=== PATIENT | female | born 1935 | race Caucasian/White ===

== ENCOUNTER 2022-12-22 09:53 | Day surgery (SDC) | payer MEDICARE ==
[2022-12-22] VITALS (13 sets, daily range): BP systolic 128–176; BP diastolic 56–96
[~2022-12-22] VITALS: Ht 175.3 cm; Wt 75.3 kg
[2022-12-22] MEDS ORDERED: normal saline 1,000 ML IV SCH (10:35)
[2022-12-22] MEDS ORDERED: LORazepam 0.5 MG tablet PO PRN (10:35)
[2022-12-22] MEDS ORDERED: diphenhydrAMINE 25mg capsule PO PRN (10:35)
[2022-12-22] MEDS ORDERED: ZOLP5TAB2 (10:36)
[2022-12-22] MEDS ORDERED: PANT40TA54 PO (10:36)
[2022-12-22] MEDS ORDERED: ATOR40TA72 PO (10:36)
[2022-12-22] MEDS ORDERED: DUPI300S (10:37)
[2022-12-22] MEDS ORDERED: HYDR-3972 PO (10:37)
[2022-12-22] MEDS ORDERED: BISO1TAB99 PO (10:37)
[2022-12-22] MEDS ORDERED: PREG100C55 PO (10:37)
[2022-12-22] MEDS ORDERED: ASCO250T22 PO (10:41)
[2022-12-22] MEDS ORDERED: fentaNYL/PF 50MCG/1 ML 2ML syringe ONE ×2 (10:47→12:05)
[2022-12-22] MEDS ORDERED: verapamil 2.5 mg/ml inj IV ONE (10:47)
[2022-12-22] MEDS ORDERED: LIDOcaine 1% (10mg/ml) 2ml vial ONE (10:47)
[2022-12-22] MEDS ORDERED: midazolam 1 mg/ML 2ml injection ONE (10:47)
[2022-12-22] MEDS ORDERED: heparin 1,000unit/ml 10ml vial 10 ML ONE (10:47)
[2022-12-22] MEDS ORDERED: iohexol 350MG/ML 100ml bottle IV ONE (10:48)
[2022-12-22] MEDS ORDERED: iohexol 350 MG/ML 50ML vial IV ONE ×2 (10:48→12:00)
[2022-12-22] MEDS ORDERED: nitroGLYCERIN-Tridil 50MG/D5W 250 ML IV ONE (10:48)
[2022-12-22 11:01] LABS: EOSINOPHILS # (AUTO) 0.1 X10'3 (0-0.9); MEAN CORPUSCULAR VOLUME 100.5 FL (78-98); MONOCYTES # (AUTO) 0.4 X10'3 (0-0.9); WHITE BLOOD COUNT 3.7 X10'3 (4.5-11.0)
[2022-12-22 11:03] LABS: EOSINOPHILS % (AUTO) 2.7 % (0-6); HEMATOCRIT 43.3 % (35.0-45.0); HEMOGLOBIN 14.4 g/dl (12.0-16.0); LYMPHOCYTES % (AUTO) 27.4 % (21-51); MEAN CORPUSCULAR HEMOGLOBIN 33.4 PG (27.0-31.0); MEAN CORPUSCULAR HGB CONC 33.2 g/dL (33.0-36.5); MEAN PLATELET VOLUME 9.5 FL (7.4-10.4); NEUTROPHILS # (AUTO) 2.2 X10'3 (1.8-7.7); NEUTROPHILS % (AUTO) 57.9 % (42-75); PLATELET COUNT 111 X10'3 (140-440); RED BLOOD COUNT 4.31 X10'6 (4.20-5.60); RED CELL DISTRIBUTION WIDTH 13.5 % (11.5-14.5)
[2022-12-22 11:06] LABS: ALBUMIN 3.9 G/DL (3.4-5.0); ANION GAP 5 (8-16); BLOOD UREA NITROGEN 23 MG/DL (7-18); BUN/CREATININE RATIO 25.6 (10.0-20.0); CALCIUM 9.3 MG/DL (8.5-10.1); CHLORIDE 106 MMOL/L (99-107); GLUCOSE 99 MG/DL (70-104); POTASSIUM 4.3 MMOL/L (3.5-5.1); SODIUM 140 MMOL/L (135-145); TOTAL CARBON DIOXIDE 29.2 MMOL/L (24-32); eGFR 59 ML/MIN
[2022-12-22 11:36] LABS: APTT 26 SECONDS (22-32)
[2022-12-22] MEDS ORDERED: LIDOcaine 1% 30ml preserv. free vial ONE (11:38)
[2022-12-22] MEDS ORDERED: HYDROmorphone 1 mg/ml syringe ONE (12:09)
[2022-12-22] MEDS ORDERED: HYDROcodone/acetaminophen 10/325mg tab PO PRN (14:05)
--- NOTE | 2022-12-22 18:49 | NUR ---
Claire catheter discontinued. Patient denies pain/discomfort/bladder distention.
== END 2022-12-22 18:20 | disposition home or self-care (01) ==
LOC: SSTAY O 09:53
PROVIDERS: ATTEND Internal Medicine Cardiovascular Disease
DX: R94.39 Abnormal result of other cardiovascular function study (principal); I25.10 Atherosclerotic heart disease of native coronary artery without angina pectoris; I10 Essential (primary) hypertension; E78.5 Hyperlipidemia, unspecified; Z79.899 Other long term (current) drug therapy; Z79.01 Long term (current) use of anticoagulants
CPT/HCPCS: 36415; 76937; 80048; 85025; 85610; 85730; 93005; 93458; 99152; 99153; A6258; C1760; C1769; C1894; J1170; J1644; J2250; J3010; J3490; J7030; Q9967; A6402; C1725